=== PATIENT | male | born 1985 | race Asian ===

== ENCOUNTER 2025-01-02 10:36 | Emergency (ER) | payer OTHER, SELFPAY ==
[2025-01-02 10:49] VITALS: BP 161/104; PULSE 62; RESP 18; TEMP 37.1; O2SAT 98; BMI 24.5
--- NOTE | 2025-01-02 11:10 | EKG_ITS ---
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
--- NOTE | 2025-01-02 11:10 | PD.EDRME ---
Rapid Medical Screening Exam FORMERLY [facility] Arrival date/time: 01/02/25 10:36 This is a 39-year-old male that comes into the emergency room with complaints of left arm numbness and high blood pressure. Patient appears anxious in triage. Patient afraid he is having a heart attack. Patient denies chest pain and shortness of breath. Patient denies any dizziness. Patient denies any nausea vomiting. Patient states his blood pressure is usually not this high. I have greeted and performed a focused initial assessment of this patient. Initial appropriate labs ordered at this time. A comprehensive ED assessment and evaluation of the patient and analysis of all test and completion of medical decision making process will be conducted by additional ED provider. Chief Complaint: General Adult/Misc Complain Time Seen by Provider: 01/02/25 10:51 Vital signs: Vital Signs Temperature 98.8 F 01/02/25 10:49 Pulse Rate 62 01/02/25 10:49 Respiratory Rate 18 01/02/25 10:49 Blood Pressure 161/104 H 01/02/25 10:49 Pulse Oximetry (%) 98 01/02/25 10:49 Oxygen Delivery Method Room Air 01/02/25 10:49
--- NOTE | 2025-01-02 11:17 | XR_ITS ---
Examination: PA lateral chest 2 views TECHNIQUE: Upright PA and lateral chest 2 views Examination time: January 02, 2025 1231 hours INDICATIONS: Chest pain today FINDINGS: Normal heart size. Lungs are clear. The osseous structures are intact IMPRESSION: No active disease
[2025-01-02 12:02] LABS: Basophils # (Auto) 0.1 Thou/mm3 (0.0-0.2); Basophils % (Auto) 1 % (0-2.5); Eosinophils # (Auto) 0.3 Thou/mm3 (0.0-0.5); Eosinophils % (Auto) 5 % (0-10); Hematocrit 46.9 % (41.0-53.0); Hemoglobin 16.7 g/dL (13.5-16.0); Immature Granulocytes % (Auto) 0 % (0-0); Immature Granulocytes Auto 0.01 Thou/mm3 (0.00-0.00); Lymphocytes # (Auto) 2.4 Thou/mm3 (1.0-4.8); Lymphocytes % (Auto) 41 % (10-50); Mean Corpuscular HGB Conc 35.6 g/dl (31.0-37.0); Mean Corpuscular Hemoglobin 31.4 pg (25.0-35.0); Mean Corpuscular Volume 88 fL (80-100); Monocytes # (Auto) 0.4 Thou/mm3 (0.0-0.8); Monocytes % (Auto) 7 % (0-12); Neutrophils # (Auto) 2.7 Thou/mm3 (1.8-7.7); Neutrophils % (Auto) 46 % (37-80); Nucleated Red Blood Cell % 0 /100 WBC (0); Platelet Count 248 Thou/mm3 (140-440); RDW Standard Deviation 39.8 fL (35.1-43.9); Red Blood Count 5.32 Miln/mm3 (4.50-5.90); White Blood Count 5.9 Thou/mm3 (3.8-10.6)
[2025-01-02 12:22] LABS: Alanine Aminotransferase 30 U/L (10-49); Albumin, Serum 5.2 gm/dL (3.5-5.0); Albumin/Globulin Ratio 1.9 (1.2-2.2); Alkaline Phosphatase 76 U/L (46-116); Anion Gap 8 (7-16); Aspartate Amino Transferase 23 U/L (0-34); BUN/Creatinine Ratio 14 Ratio (12-20); Bilirubin,Total 0.8 mg/dL (0.3-1.2); Blood Urea Nitrogen 13 mg/dL (9-23); Calcium 9.8 mg/dL (8.3-10.6); Calcium (Corrected) 9.8 mg/dL (8.5-10.1); Carbon Dioxide 28.7 mMol/L (20.0-31.0); Chloride 105 mMol/L (98-107); Creatinine (Component) 0.9 mg/dL (0.6-1.3); Globulin 2.8 gm/dL (2.3-3.5); Glucose 105 mg/dL (74-106); Osmolality,Calculated 283 (275-295); Potassium 4.1 mMol/L (3.4-5.1); Sodium 142 mMol/L (136-145); Troponin I < 0.002 ng/mL (0.0-0.045); eGFR > 60 See Note
[2025-01-02 12:35] LABS: Amphetamine/Methamp Scrn,U Negative (Negative); Barbiturate Screen,Urine Negative (Negative); Benzodiazepines Screen,Urine Negative (Negative); Benzoylecgonine Screen, Ur Negative (Negative); Fentanyl Screen,Urine Negative (Negative); Opiate Screen,Urine Negative (Negative); THC Screen,Urine Negative (Negative)
--- NOTE | 2025-01-02 14:20 | EDNOTE_ITS ---
ED Chest Pain RME/HPI General Chief Complaint: General Adult/Misc Complain Stated Complaint: NUMB L) SHOULDER TO FINGER TIPS & L) FOOT X 4DAYS Time Seen by Provider: 01/02/25 10:51 Arrival date/time: 01/02/25 10:36 This is a 39-year-old male that comes into the emergency room with complaints of left arm numbness and high blood pressure. Patient appears anxious in triage. Patient afraid he is having a heart attack. Patient denies chest pain and shortness of breath. Patient denies any dizziness. Patient denies any nausea vomiting. Patient states his blood pressure is usually not this high. RME / HPI RME / HPI narrative: 01/02/25 10:36 This is a 39-year-old male that comes into the emergency room with complaints of left arm numbness and high blood pressure. Patient appears anxious in triage. Patient afraid he is having a heart attack. Patient denies chest pain and shortness of breath. Patient denies any dizziness. Patient denies any nausea vomiting. Patient states his blood pressure is usually not this high. I have greeted and performed a focused initial assessment of this patient. Initial appropriate labs ordered at this time. A comprehensive ED assessment and evaluation of the patient and analysis of all test and completion of medical decision making process will be conducted by additional ED provider. Related Data Previous Rx's ?Medication ?Instructions ?Recorded acetaminophen 650 mg 650 mg PO Q8H PRN fever or p ain 10/12/18 tablet,extended release #30 tabs ibuprofen 600 mg tablet 600 mg PO Q8H PRN fever or p ain 10/12/18 #30 tabs Allergies Allergy/AdvReac Type Severity Reaction Status Date / Time No Known Allergies Allergy Verified 01/02/25 10:39 Review of Systems Review of Systems Systems Reviewed: All systems reviewed, normal except as documented Past Medical History Past Medical History Comments PMH COMMENT: denies ED Exam Narrative Physical exam: VITAL SIGNS: Reviewed. GENERAL APPEARANCE: Alert and interactive, follows commands, no acute distress, HEAD AND FACE: Non-traumatic. ENT: PERRL, pink conjunctivitis, eyelid no trauma, Mucous membrane moist. NECK: Supple, nontender, no nuchal rigidity. CHEST: No tenderness, no crepitus, no paradoxical movement, no retractions. LUNGS: Clear, well ventilated, symmetric, no rales, no wheezing, no ronchi, no stridor, good breath sounds bilaterally. HEART: Regular rate, regular rhythm, no murmur, no gallops. ABDOMEN: Soft, nondistended, no guarding, nontender, no rebound, no masses, NEUROLOGICAL: Gross motor function intact sensory function intact, Appropriate for age. MUSCULOSKELETAL: low back nontender, full range of motion. EXTREMITIES: No redness no swelling no skin breakdown on bilateral foot and leg. Distal neurovascular status intact bilateral foot SKIN: Color pink, dry, no rash, no lacerations, no abrasions, no contusions. Course Quality Measures none Orders Category Date Time Status EKG (ED ONLY) *Do not use* NOW Care 01/02/25 11:10 Completed EKG (ED Only) Stat Exams 01/02/25 11:10 Draft XR chest 2V Stat Exams 01/02/25 11:17 Completed CBC Stat Lab 01/02/25 11:38 Completed Comprehensive Metabolic Panel Stat Lab 01/02/25 11:38 Completed Drug Screen,Urine Stat Lab 01/02/25 11:50 Completed Troponin I Stat Lab 01/02/25 11:38 Completed Vital Signs Vital signs: Vital Signs Temperature 98.8 F 01/02/25 10:49 Pulse Rate 62 01/02/25 10:49 Respiratory Rate 18 01/02/25 10:49 Blood Pressure 161/104 H 01/02/25 10:49 Pulse Oximetry (%) 98 01/02/25 10:49 Oxygen Delivery Method Room Air 01/02/25 10:49 Procedures -ED EKG Interpretation #1: Date of EK01/02/25 Time of EK:31 Rate: 56 Interpretation: Interpreted by me (sinus rhythm ) EKG Impression: No ectopy, Normal QRS and Normal intervals Chest Pain MDM Narrative MDM Narrative:: chest x ray: FINDINGS: Normal heart size. Lungs are clear. The osseous structures are intact IMPRESSION: No active disease Labs done hemoglobin white count is 5.9 otherwise unremarkable, BMP unremarkable troponin negative. Drug screen negative 16.7 with a hematocrit of 46.9 Patient's numbness to his arm resolved. Explained to patient that he needs to make sure he follows up with his primary provider about his blood pressure. Patient told to come back to the emergency room if symptoms change or worsen. Patient verbalizes understanding. Patient comfortable plan of care Patient data External records reviewed:: [facility] [place] previous records Clinical information provided by:: patient Social determinants that could affect healthcare access:: none Patient has the following chronic illnesses:: denies How is presenting disease/condition affected by chronic disease/condition?: no chronic disease Evaluation data The following diagnostics were reviewed and interpreted by me:: lab results and radiology exam(s) Lab and/or radiology exams considered but not ordered:: see note Interpretation Summary: see note Medications / Prescriptions Medications or Prescriptions considered but not ordered:: none Medication administrations:: none Consultations Consultation(s) initiated? (list below): No Diagnosis Chest Pain Differential Diagnosis: st elevation myocardial infarction, costochondritis, chest pain and other (anxiety ) Most likely diagnosis given after review of the tests above:: anxiety, htn, chest pain Admission Indicated Admission indicated?: not indicated Admission Request Was there a request for admission?: No Disposition Plan Disposition Plan: Discharge Discharge Attestation Discharge Attestation: The patient and all family members were given an opportunity to ask questions and understood the discharge instructions. Discharge instructions specifically effects, indications for sooner follow up or return to the emergency department, and the expected course of current diagnosis. Patient condition: Stable Discharge Plan Plan Patient Disposition: HOME (Self Care) Patient condition on transfer: Stable Prescriptions/Referrals Prescriptions/Med Rec: No Action acetaminophen 650 mg tablet extended release 650 mg PO Q8H PRN (Reason: fever or pain) Qty: 30 0RF Rx Instructions: swallow whole; do not crush, chew, break, dissolve, cut, or open ibuprofen 600 mg tablet 600 mg PO Q8H PRN (Reason: fever or pain) Qty: 30 0RF Rx Instructions: prn pain / fever Referrals: Dequan Berry MD [Primary Care Provider] - In 1 week Problem List Clinical Impression: Arm numbness, High blood pressure Patient/Caregiver Discharge Instructions Discharge Activity: activity as tolerated Education Materials: Hypertension Dc Additional Instructions: Take blood pressure at home and document numbers twice a day. Please show the numbers to primary provider. Come back to the emergency room if symptoms change or worsen. Print Language: [place] Stand Alone Forms: Roxann Award Info., Patient Portal Info Letter PA/JULIAN Supervising Physician PA/JULIAN Supervising Physician: REJI
== END 2025-01-02 14:25 | disposition home or self-care (01) ==
PROVIDERS: Nurse Practitioner Family; Emergency Provider Emergency Medicine; PCP Internal Medicine
DX: R20.0 Anesthesia of skin (principal); R03.0 Elevated blood-pressure reading, without diagnosis of hypertension; R07.9 Chest pain, unspecified
CPT/HCPCS: 36415; 71046; 80053; 80307; 84484; 85025; 93005; 99283

== ENCOUNTER → 2025-02-17 | Outpatient (CLI) | payer OTHER, SELFPAY ==
--- NOTE | 2025-02-17 | XR_ITS ---
Examination: Thoracic spine 3 views Technique : AP lateral coned lateral upper dorsal spine 3 views Date and time: February 17, 2025 1227 hours INDICATIONS: Lifting injury to the back one week ago FINDINGS: Thoracic dextroscoliosis 8 degrees No thoracic fracture No significant thoracic disc narrowing IMPRESSION: No thoracic fracture No significant thoracic disc narrowing
--- NOTE | 2025-02-17 | XR_ITS ---
EXAMINATION: Cervical spine, 5 views Technique: Cervical spine AP, AP odontoid, lateral, bilateral obliques, 5 views Exam date and time: February 17, 2025 1213 hours INDICATIONS: Injury to the neck one week ago with neck pain. FINDINGS: Satisfactory alignment cervical vertebral bodies. No cervical fracture. Intact odontoid No significant cervical disc narrowing No neural foraminal stenosis IMPRESSION: No cervical fracture or significant arthritic change
== END | disposition home or self-care (01) ==
PROVIDERS: PCP Family Medicine; Referring Provider Physician Assistant; Visit Provider Physician Assistant
DX: M54.2 Cervicalgia (principal); M41.9 Scoliosis, unspecified; M54.6 Pain in thoracic spine
CPT/HCPCS: 72050; 72070

== ENCOUNTER → 2025-02-18 | Outpatient (CLI) | payer OTHER, SELFPAY ==
[2025-02-18 08:57] LABS: Collection Type, Urine Clean Catch; Squamous Epithelial Cell,Urine 0 /hpf (0-5)
[2025-02-18 09:15] LABS: Basophils % (Auto) 1 % (0-2.5); Eosinophils # (Auto) 0.2 Thou/mm3 (0.0-0.5); Eosinophils % (Auto) 3 % (0-10); Hematocrit 42.6 % (41.0-53.0); Hemoglobin 15.2 g/dL (13.5-16.0); Immature Granulocytes % (Auto) 0 % (0-0); Immature Granulocytes Auto 0.02 Thou/mm3 (0.00-0.00); Lymphocytes # (Auto) 2.7 Thou/mm3 (1.0-4.8); Lymphocytes % (Auto) 48 % (10-50); Mean Corpuscular HGB Conc 35.7 g/dl (31.0-37.0); Mean Corpuscular Hemoglobin 30.5 pg (25.0-35.0); Mean Corpuscular Volume 85 fL (80-100); Monocytes # (Auto) 0.4 Thou/mm3 (0.0-0.8); Monocytes % (Auto) 8 % (0-12); Neutrophils # (Auto) 2.2 Thou/mm3 (1.8-7.7); Neutrophils % (Auto) 40 % (37-80); Nucleated Red Blood Cell % 0 /100 WBC (0); Platelet Count 209 Thou/mm3 (140-440); RDW Standard Deviation 37.9 fL (35.1-43.9); Red Blood Count 4.99 Miln/mm3 (4.50-5.90); White Blood Count 5.5 Thou/mm3 (3.8-10.6)
[2025-02-18 09:23] LABS: Sed Rate (ESR) 1 mm/hr (0-15)
[2025-02-18 09:24] LABS: Bilirubin,Urine Negative (Negative); Blood,Urine Negative (Negative); Clarity,Urine Clear (Clear/Hazy); Color,Urine Lt-Yellow (Lt Yel-Yel); Culture Indicated,Urine Not Indicated; Glucose, Urine Negative (Negative); Ketones,Urine Negative (Negative); Leukocyte Esterase,Urine Negative (Negative); Nitrite,Urine Negative (Negative); Protein,Urine Negative (Neg - Trace); RBC,Urine 1 /hpf (0-3); Specific Gravity,Urine 1.014 (1.001-1.035); Urobilinogen,Urine Negative mg/dL (0.0-1.0); WBC,Urine < 1 /hpf (0-5)
[2025-02-18 09:28] LABS: Glucose Estimated Average 108 mg/dL (80-131); Hemoglobin A1C 5.4 % Hgb (4.8-6.0)
[2025-02-18 09:43] LABS: Alanine Aminotransferase 24 U/L (10-49); Albumin, Serum 4.6 gm/dL (3.5-5.0); Albumin/Globulin Ratio 1.9 (1.2-2.2); Alkaline Phosphatase 76 U/L (46-116); Anion Gap 7 (7-16); Aspartate Amino Transferase 23 U/L (0-34); BUN/Creatinine Ratio 12 Ratio (12-20); Bilirubin,Total 0.6 mg/dL (0.3-1.2); Blood Urea Nitrogen 12 mg/dL (9-23); Calcium 8.9 mg/dL (8.3-10.6); Calcium (Corrected) 8.9 mg/dL (8.5-10.1); Carbon Dioxide 28.4 mMol/L (20.0-31.0); Cardiac Risk Estimate 4.3 RATIO (4.0-6.7); Chloride 107 mMol/L (98-107); Cholesterol 167 mg/dL (132-200); Globulin 2.4 gm/dL (2.3-3.5); Glucose 101 mg/dL (74-106); HDL Cholesterol 39 mg/dL (40-60); LDL Cholesterol,Calculated 100 mg/dL (0-130); Osmolality,Calculated 282 (275-295); Potassium 4.2 mMol/L (3.4-5.1); Sodium 142 mMol/L (136-145); Thyroid Stimulating Hormone 2.17 uIU/mL (0.55-4.78); Triglycerides 138 mg/dL (30-150); Uric Acid 8.6 mg/dL (3.7-9.2); eGFR > 60 See Note
== END | disposition home or self-care (01) ==
PROVIDERS: PCP Family Medicine; Referring Provider Physician Assistant; Visit Provider Physician Assistant
DX: Z00.00 Encounter for general adult medical examination without abnormal findings (principal)
CPT/HCPCS: 36415; 80053; 80061; 81001; 83036; 84443; 84550; 85025; 85652